=== PATIENT | female | born 1990 | race Caucasian/White ===

== ENCOUNTER 2020-12-10 22:20 | Emergency (ER) | payer BC, SELFPAY ==
[2020-12-10 22:23] VITALS: BP 136/94; PULSE 118; RESP 16; TEMP 36.6; O2SAT 98; BMI 33.3
--- NOTE | 2020-12-10 22:53 | ED_ITS ---
HPI - Psych General Chief Complaint: Psychiatric Symptoms Stated Complaint: anxiety Time Seen by Provider: 12/10/20 22:42 Source: patient Mode of arrival: ambulatory Limitations: no limitations History of Present Illness HPI Narrative: Patient comes emergency room complaining of anxiety, endorses self-harming with no suicidal ideation. Patient states that she is known to have anxiety, patient had a trigger today, patient has 4 superficial lacerations which were self-inflicted earlier today. Patient would like to see [facility]. 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 Related Data Allergies Allergy/AdvReac Type Severity Reaction Status Date / Time No Known Allergies Allergy Verified 12/10/20 22:27 Review of Systems Review of Systems: Constitutional : No Weight loss, No Fever, No Chills, No Night Sweats, No Fatigue, No Malaise ENT/Mouth : No Hearing loss, No Ear Pain, No Nasal Congestion, No Sinus Pain, No Hoarseness, No sore throat, No Rhinorrhea, No Swallowing Difficulty Eyes: No Eye Pain, No Swelling, No Redness, No Foreign Body, No Discharge, No Vision Changes Cardiovascular : No Chest Pain, No SOB, No Dyspnea on Exertion, No Orthopnea, No Edema, No Palpitations Respiratory : No Cough, No Sputum, No Wheezing, No Smoke Exposure, No Dyspnea Gastrointestinal : No Nausea, No Vomiting, No Diarrhea, No Constipation, No abdominal Pain, No Hematochezia, No Melena Genitourinary : no irregular bleeding, No Dysuria, No Urinary Frequency, No Hematuria, No Urinary Incontinence, No Urgency, No Flank Pain, No Urinary Flow Changes, No Hesitancy Musculoskeletal : No joint pain, No Myalgias, No Joint Swelling Skin : Superficial lacerations in left forearm Neuro : No Weakness, No Numbness, No Paresthesias, No Loss of Consciousness, No Dizziness, No Headache Psych : Anxiety, no SI, no HI Heme/Lymph: No Bruising, No Bleeding,No Lymphadenopathy Endocrine : No Polyuria, No Polydipsia, No Temperature Intolerance [facility] Past Medical History Medical History (Updated 12/11/20 @ 07:01 by Sandra Goncalves MD) Anxiety Depression Social History Social History Advance Directives: No Physical Exam Vital Signs: Vital Signs: Last Vital Signs Temp 97.8 F 08/21/21 22:23 Pulse 118 H 12/10/20 22:23 Resp 16 12/11/20 05:09 BP 000/00 L 12/11/20 05:09 Pulse Ox 98 12/10/20 22:23 Body Mass Index 33.3 Const: Other: Appearance: Alert. Oriented X3. No acute distress. Eyes: Pupils equal, round and reactive to light. ENT: Pharynx normal. Neck: Normal inspection. Neck supple. No lymph nodes noted. No crepitus CVS: Normal heart rate and rhythm. Pulses normal. Normal S1 and S2 Respiratory: No respiratory distress. Breath sounds normal. No Wheezing. No ra les Abdomen: Soft and nontender. No rigidity. No distention. good BS x4 Skin: Skin warm and dry. For superficial lacerations to the left forearm Extremities: No lower extremity edema. No Lacerations. No Rash Neuro: Cranial nerves 2-12 grossly intact, Oriented X 3. No motor deficit. No sensory deficit. Moving all extermities. No slurred speech. Psych: Calm, cooperative, good eye contact Course Course Course Narrative: Patient vitals stable, physician observation started. [facility] consult pending MDM - Psych Lab Data Labs: Lab Results 12/11/20 12/11/20 Range/Units 03:10 03:10 Urine Color YELLOW Urine Appearance CLEAR Urine pH 6.5 (5.0-8.0) Ur Specific [place] 1.025 (1.005-1.025) Urine Protein NEG (NEG-TRACE) MG/DL Urine Glucose (UA) NEG (NEG) MG/DL Urine Ketones NEG (NEG) MG/DL Urine Blood NEG (NEG) Urine Nitrite NEG (NEG) Ur Leukocyte Esterase NEG (NEG) Urine Test NEGATIVE (NEGATIVE) Discharge Plan Discharge Clinical Impression: Acute anxiety
--- NOTE | 2020-12-10 23:31 | PC.NURSE ---
pt in [facility] attire. pt denies s1 or h1. left arm lac no active bleeding. pt calm cooperative, skin pnk warm and dry. no s/s/of distress.
--- NOTE | 2020-12-10 23:47 | PC.NURSE ---
faxed to n and n they are present in the pod and are aware of the pt in 17h need to be seen.
[2020-12-11 03:17] LABS: Glucose Urine UA NEG (NEG); Leukocyte Esterase Urine NEG (NEG); Nitrite Urine NEG (NEG); PH 6.5 (5.0-8.0); Specific Gravity - Urine 1.025 (1.005-1.025); Urine Blood NEG (NEG); Urine Ketones NEG (NEG); Urine Protein NEG (NEG-TRACE)
[2020-12-11 03:20] LABS: Appearance Urine CLEAR; Color Urine YELLOW; UPreg QC Valid YES; Urine Pregnancy NEGATIVE (NEGATIVE)
[2020-12-11] MEDS: Acetaminophen 325 MG TABLET 650 MG PO (03:26)
[2020-12-11 05:09] VITALS: BP 000/00; RESP 16
--- NOTE | 2020-12-11 08:11 | PC.NURSE ---
[facility] called for more information, states they will call back with eta
--- NOTE | 2020-12-11 08:30 | PC.NURSE ---
leathan called to report eval will be after 11am
--- NOTE | 2020-12-11 11:07 | PC.NURSE ---
pt speaking with care team at this time.
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
== END 2020-12-11 11:54 | disposition home or self-care (01) ==
PROVIDERS: Emergency Provider Emergency Medicine
DX: F41.9 Anxiety disorder, unspecified (principal); S51.812A Laceration without foreign body of left forearm, initial encounter; W26.9XXA Contact with unspecified sharp object(s), initial encounter; Y93.9 Activity, unspecified; Y92.9 Unspecified place or not applicable; Y99.9 Unspecified external cause status
CPT/HCPCS: 81003; 81025; 99285